=== PATIENT | female | born 1955 | race Caucasian/White ===

== ENCOUNTER 2017-11-28 03:41 | Emergency (ER) | payer OTHER ==
[~2017-11-28] VITALS: Ht 160 cm; Wt 81.6 kg
[2017-11-28 03:45] VITALS: Ht 160 cm; Wt 81.6 kg
[2017-11-28 04:57] VITALS: BP 164/81
== END 2017-11-28 04:57 | disposition home or self-care (01) ==
LOC: ED 03:41
DX: R51 Headache (principal)

== ENCOUNTER 2020-01-09 10:01 | Emergency (ER) | payer OTHER ==
[~2020-01-09] VITALS: Ht 157.5 cm; Wt 81.2 kg
[2020-01-09 10:14] VITALS: Ht 157.5 cm; Wt 81.2 kg
[2020-01-09 13:09] VITALS: BP 172/66
== END 2020-01-09 13:09 | disposition home or self-care (01) ==
LOC: ED 10:01
DX: S52.502A Unspecified fracture of the lower end of left radius, initial encounter for closed fracture (principal); E78.00 Pure hypercholesterolemia, unspecified; W01.0XXA Fall on same level from slipping, tripping and stumbling without subsequent striking against object, initial encounter; Y93.89 Activity, other specified; Y92.89 Other specified places as the place of occurrence of the external cause; Y99.8 Other external cause status
CPT/HCPCS: J2001; Q0092

== ENCOUNTER 2020-02-18 02:06 | Emergency (ER) | payer OTHER, SELFPAY ==
[~2020-02-18] VITALS: Ht 160 cm; Wt 81.6 kg
[2020-02-18 02:26] VITALS: Ht 160 cm; Wt 81.6 kg
[2020-02-18 04:15] VITALS: BP 120/66
== END 2020-02-18 04:15 | disposition home or self-care (01) ==
LOC: ED 02:06
DX: B34.9 Viral infection, unspecified (principal); Z20.828 Contact with and (suspected) exposure to other viral communicable diseases
CPT/HCPCS: J1885; Q0092; U0003-CS